=== PATIENT | female | born 1965 | race Caucasian/White ===

== ENCOUNTER 2018-04-10 20:06 | Emergency (ER) | payer OTHER ==
[~2018-04-10] VITALS: Ht 165.1 cm; Wt 76.2 kg
[2018-04-10 20:06] VITALS: BP 147/87
[2018-04-10] MEDS ORDERED: oxyCODONE/APAP 5/325 1 TAB TABLET PO ONE (21:00)
[2018-04-10] MEDS ORDERED: CYCL-331 PO (21:00)
[2018-04-10] MEDS ORDERED: LORazepam 1 MG TABLET PO ONE (21:00)
--- NOTE | 2018-04-10 21:05 | PHYS DOC ---
Past History Past Medical History: No Pertinent History Past Surgical History: Other Alcohol Use: None Drug Use: None Adult General Chief Complaint Chief Complaint: UPPER EXTREMITY PAIN HPI HPI Patient is a 53 year old female who presents with laceration of chronic right shoulder pain. Patient is followed by a specialist who shaved her nerve endings approximately a year ago which helped her chronic pain tremendously. She was told that they might grow back somewhat and they have intermittently over the past several months. Patient's been increased pain over the past week. Patient has some point with her specialist on Friday and was given a bottle of Percocet by her primary care as bridging medication. Patient had been taking 1 tablet only did not know that she could take 2 tablets. Patient is here for improved pain relief until she can see her specialist on Friday. Patient has no localizing neurological deficits and has no other acute complaints. Review of Systems Review of Systems Constitutional: Denies fever or chills [] Eyes: Denies change in visual acuity, redness, or eye pain [] HENT: Denies nasal congestion or sore throat [] Respiratory: Denies cough or shortness of breath [] Cardiovascular: No additional information not addressed in HPI [] GI: Denies abdominal pain, nausea, vomiting, bloody stools or diarrhea [] : Denies dysuria or hematuria [] Musculoskeletal: Denies back pain or joint pain [] Integument: Denies rash or skin lesions [] Neurologic: Denies headache, focal weakness or sensory changes [] Endocrine: Denies polyuria or polydipsia [] All other systems were reviewed and found to be within normal limits, except as documented in this note. Current Medications Current Medications Current Medications Medications (Trade) Dose Ordered Sig/Farida Start Time Stop Time Status Last Admin Dose Admin Lorazepam (Ativan) 0.5 mg 1X ONCE 04/10/18 21:00 04/10/18 21:01 DC Oxycodone/ Acetaminophen (Percocet 5/325) 2 tab 1X ONCE 04/10/18 21:00 04/10/18 21:01 DC Allergies Allergies Allergies Coded Allergies Type Severity Reaction Last Updated Verified No Known Drug Allergies 04/10/18 No Physical Exam Physical Exam Constitutional: Well developed, well nourished, no acute distress, non-toxic appearance. [] HENT: Normocephalic, atraumatic, bilateral external ears normal, oropharynx moist, no oral exudates, nose normal. [] Eyes: PERRLA, EOMI, conjunctiva normal, no discharge. [] Neck: Normal range of motion, no tenderness, supple, no stridor. [] Cardiovascular:Heart rate regular rhythm, no murmur [] Lungs & Thorax: Bilateral breath sounds clear to auscultation [] Abdomen: Bowel sounds normal, soft, no tenderness, no masses, no pulsatile masses. [] Skin: Warm, dry, no erythema, no rash. [] Back: No tenderness, no CVA tenderness. [] Extremities: tenderness to right shoulder/paraspinal area with decreased range of motion secondary to pain, no cyanosis, no clubbing, ROM intact, no edema. [] Neurologic: Alert and oriented X 3, normal motor function, normal sensory function, no focal deficits noted. [] Psychologic: Affect normal, judgement normal, mood normal. [] Current Patient Data Vital Signs Vital Signs Date Time Temp Pulse Resp B/P (MAP) Pulse Ox O2 Delivery O2 Flow Rate FiO2 04/10/18 20:06 97.9 53 20 99 Room Air EKG EKG [] Radiology/Procedures Radiology/Procedures [] Course & Med Decision Making Course & Med Decision Making Pertinent Labs and Imaging studies reviewed. (See chart for details) [] Dragon Disclaimer Dragon Disclaimer This electronic medical record was generated, in whole or in part, using a voice recognition dictation system. Departure Departure: Impression: Primary Impression: Shoulder pain Disposition: HOME, SELF-CARE Condition: STABLE Patient Instructions: Chronic Pain Management-Brief, Shoulder Pain, Easy-to- Read Additional Instructions: Please follow up with her regular physicians on Friday for further evaluation and management of your condition Scripts Cyclobenzaprine Hcl (CYCLOBENZAPRINE HCL) 10 Mg Tablet 1 TAB PO TID PRN for MUSCLE SPASMS, #30 TAB Prov: MAC FRANK MD 04/10/18 MAC FRANK MD Apr 10, 2018 21:05
== END 2018-04-10 21:11 | disposition home or self-care (01) ==
LOC: ER 20:06
DX: M25.511 Pain in right shoulder (principal)
CPT/HCPCS: 99283